=== PATIENT | female | born 1995 | race African-American/Black ===

== ENCOUNTER 2016-12-25 14:26 | Emergency (ER) | payer MEDICAID ==
[~2016-12-25] VITALS: Ht 165.1 cm; Wt 68.0 kg
[2016-12-25 14:47] VITALS: BP 149/86
[2016-12-25] MEDS ORDERED: NKM (14:53)
[2016-12-25 15:36] LABS: APPEARANCE,URINE SLIGHTLY CLOUDY; KETONES,URINE NEGATIVE (NEGATIVE); LEUKOCYTE ESTERASE ,URINE 1+ (NEGATIVE); NITRITE,URINE NEGATIVE (NEGATIVE); PH,URINE 5 (4.5-8.0); PROTEIN,URINE 2+ (NEGATIVE); UROBILINOGEN,URINE 1 MG/DL (0.0-1.0)
[2016-12-25 15:43] LABS: RBC,URINE 60-80 /HPF (0 - 2)
[2016-12-25 15:44] LABS: BACTERIA,URINE MODERATE /HPF; ICTOTEST NEGATIVE; MUCUS,URINE FEW /LPF (NONE/OCC); SQUAMOUS EPITHELIAL CELL,UR MODERATE /LPF (NONE/OCC)
[2016-12-25] MEDS ORDERED: DULCOLAX STOOL100 M1 PO (16:16)
[2016-12-25] MEDS ORDERED: NITROFURANTOIN100 M2 ORAL (16:16)
[2016-12-25] MEDS ORDERED: IBUPROFEN600 MG ORAL (16:16)
[2016-12-25 16:28] VITALS: BP 135/82
--- NOTE | 2016-12-25 17:19 | Emergency Room Report ---
History of Present Illness General Chief Complaint: Abdominal Pain Source: Patient Present Illness HPI 21YOF with multiple complaints: 1) Dysmenorrhea with current period. Didnt take any OTC meds. 2) Polyuria. No abd pain, vomiting, fever/chills. 3) Constipation, straining, blood in stool. No connie bleeding. Allergies: Coded Allergies: No Known Allergies (Unverified , 12/25/16) Patient History Past Medical History: none Past Surgical History: none Pertinent Family History: none Social History: Denies: alcohol use, drug use, smoking Last Menstrual Period: Current Now: No Immunizations: UTD Reviewed Nursing Documentation: PMH: Agreed, PSxH: Agreed Nursing Documentation-PMH Past Medical History: No Stated History Review of Systems All Other Systems: negative except mentioned in HPI Physical Exam Vital Signs Date Time Temp Pulse Resp B/P Pulse Ox O2 Delivery O2 Flow Rate FiO2 12/25/16 14:47 97.9 59 16 149/86 100 Room Air Sp02 EP Interpretation: reviewed, normal General Appearance: normal inspection, well appearing, no apparent distress, alert, GCS 15, non-toxic, other - Sleeping in stretcher Head: normocephalic, atraumatic Eyes: bilateral eye EOMI, bilateral eye PERRL ENT: normal ENT inspection, hearing grossly normal, normal voice Neck: normal inspection, full range of motion, supple, no bony tend Respiratory: normal inspection, lungs clear, normal breath sounds, no respiratory distress, no retraction, no wheezing Cardiovascular #1: regular rate, rhythm, no edema Gastrointestinal: normal inspection, normal bowel sounds, non tender, soft, no guarding, no hernia Genitourinary: no CVA tenderness Musculoskeletal: normal inspection, back normal, normal range of motion, Anne' s Sign negative Neurologic: normal inspection, alert, oriented x3, responsive, guest service supervisor III-XII nml as tested, motor strength/tone normal, speech normal Psychiatric: normal inspection, judgement/insight normal, mood/affect normal Skin: normal inspection, normal color, no rash Lymphatic: normal inspection Medical Decision Making Diagnostic Impression: Primary Impression: Constipation Qualified Codes: K59.00 - Constipation, unspecified Additional Impressions: Menstrual cramps UTI (urinary tract infection) Qualified Codes: N30.01 - Acute cystitis with hematuria ER Course Constipation: Will try stool softeners. Patient refused laxative Rx. UTI: macrobid Dysmenorrhea. Urine preg negative. Ibuprofen given here and Rx for same PMD followup as needed DC home Last Vital Signs Date Time Temp Pulse Resp B/P Pulse Ox O2 Delivery O2 Flow Rate FiO2 12/25/16 16:28 97.6 72 18 135/82 100 Room Air Status: improved Disposition: HOME, SELF-CARE Condition: Improved Scripts Docusate Sodium (DULCOLAX STOOL SOFTENER) 100 Mg Capsule 100 MG PO BID for 7 Days, #14 CAP Prov: BRAYDEN OLIVER M.D. 12/25/16 Ibuprofen* (MOTRIN*) 600 Mg Tablet 600 MG ORAL THREE TIMES A DAY for 7 Days, #30 TAB 0 Refills Prov: BRAYDEN OLIVER M.D. 12/25/16 Nitrofurantoin Monohyd/M-Cryst* (MACROBID 100 MG*) 100 Mg Capsule 100 MG ORAL EVERY 12 HOURS for 7 Days, #14 CAP Prov: BRAYDEN OLIVER M.D. 12/25/16 Referrals: NOT CHOSEN IPA/,REFERRING (PCP) Patient Instructions: Dysuria, Constipation, Adult, [id number], Dysmenorrhea , [id number] Additional Instructions: - Take ibuprofen as needed up to 3x a day with food for cramps - Take ALL of the antibiotic to treat your UTI - Take stool softener as prescribed, drink plenty of fluid for constipation BRAYDEN OLIVER M.D. Dec 25, 2016 17:19
== END 2016-12-25 16:28 | disposition home or self-care (01) ==
LOC: EMR 15:11
DX: K59.00 Constipation, unspecified (principal); N30.01 Acute cystitis with hematuria; N94.6 Dysmenorrhea, unspecified
CPT/HCPCS: 80300; 81003; 81025; 87086; 99284